=== PATIENT | female | born 2005 | race Two or more races ===

== ENCOUNTER 2024-03-15 02:25 | Emergency (ER) | payer BC ==
[~2024-03-15] VITALS: Ht 149.9 cm; Wt 52.2 kg
[2024-03-15] MEDS ORDERED: ACETAMINOPHEN 500 MG GEL..CAP PO ONE (05:54)
== END 2024-03-15 06:13 | disposition home or self-care (01) ==
LOC: EMR PED 02:27 → ER 02:27 → EMR PED 03:25
DX: M43.6 Torticollis (principal)